=== PATIENT | female | born 1975 | race Caucasian/White ===

== ENCOUNTER 2017-08-02 12:26 | Emergency (ER) | payer MEDICARE, MEDICAID ==
[~2017-08-02] VITALS: Ht 165.1 cm; Wt 86.2 kg
[~2017-08-02 12:26] MED LIST: AMOXICOT500 MG PO; BROMFED DM COU118 ML PO; CLINDAMYCIN HC300 MG PO; FLONASE 50 MCG16 GM; HYDROCODONE1 TABLET PO; MEDROL 4MG. DOSE4 MG PO; MOTRIN 600MG.600 MG PO; NOMEDS; PHENERGAN 25MG.25 M1 PO; ZANTAC 150150 MG PO; ZITHROMAX Z PA250 MG PO
--- NOTE | 2017-08-02 12:58 | [facility]gent Treatment Center Report ---
History of Present Issue Date/Time Seen by Provider 08/02/17 8595 Visit Reason Pt arrived:Walked Presenting Problem:PT C/O SORE THROAT, LEFT EAR PAIN, NASAL DRAINAGE, AND CHEST CONGESTION. Location if Accident: Onset of symptoms date/time:/ or onset unknown for:MEDICAL HX UNKNOWN Have you (or family members/close friends) recently traveled outside the [place]? N If Yes, where/when: Have you had exposure to infectious disease within the past month? TB? Other? Specify: c/o "cold symptoms and my asthma". rhinorrhea, nasal congestion, PND, sore throat in morning x 2-3 days. Cough w/ mild SOA since yesterday. Hx of asthma and feels "cold symptoms" are "aggravating" it. No fever or wheezing. Albuterol inhaler has helped. Using 1-3 times a day. Requesting steroids "because that always helps my asthma when I am like this". Friend's daughter w/ similiar symptoms today. Source patient Exam Limitations no limitations ALLERGIES Coded Allergies: pregabalin (From [facility]) (Mild, 10/30/15) Home Medications Active Scripts Fluticasone Propionate (Flonase 50 Mcg Nasal [place]) 2 SPRAY NA DAILY #1 BOT Prov: 04/22/17 Reported Medications No Home Medications (NO HOME MEDICATIONS) History Medical History General CAD? Yes Angina: No [place]: No Hypertension? No Hyperlipidemia? No CHF? No DVT? No PE? No COPD? No Asthma? Yes Anemia? No GERD? No Gastric ulcers? No GI Bleed? No Hernia? No Thyroid Problems? No Hypothyroidism? No CVA? No Seizures? No Diabetes? No Renal Insuffiency? No UTI? Yes Stones? Yes BPH? No GB Disease: Yes Nephritic Syndrome? No Asplenia? No Hepatitis? No Sickle Cell Disease? No Arthritis? No Migraines? No Cataracts? No Glaucoma? No MRSA? No HIV? No TB? No Anxiety? No Depression? No Cancer? No More? No Immunization HX DT/Tetanus 1-4 Years Ago Flu NEVER Pneumonia NEVER Surgical Hx Previous Surgery?Y CHOLECYSTECTOMY ENDOMETRIOSIS SURG X2 Appendectomy HYSTERECTOMY Family History Family HX Diabetes Yes CAD Yes Hypertension Yes Hyperlipidemia No Cancer No TB No Social History Smoking Hx Smoker: Current Every Day Smoker Tobacco: No Alcohol Alcohol: No Review of Systems All Other Systems Reviewed and Negative Constitutional denies fever, malaise ("a little in general") Eyes denies drainage ENT see HPI. denies: ear discharge, throat swelling. Respiratory see HPI, cough (nonproductive) Cardiovascular denies chest pain Gastrointestinal denies no symptoms reported Skin denies rash Psychiatric/Neurological denies headache Physical Exam Vital Signs Vital Signs Date Time Temp Pulse Resp B/P Pulse O2 O2 Flow FiO2 Ox Delivery Rate 08/02 1313 98.7 68 20 137/94 100 08/02 1246 98.7 68 20 137/94 100 General Appearance normal appearance, no apparent distress Eye Exam - bilateral eye normal exam Ear, Nose, Throat nasal congestion (mild), clear PND, guerrero EACs and TMs normal Neck non-tender, supple Respiratory Status Yes: trachea midline, chest symmetrical, non productive cough (once in clinic). No: respiratory distress, use of accessory muscles, pain on inspiration, pain on expiration, productive cough. Lung Sounds anterior: lungs clear. posterior: lungs clear. bilateral: lungs clear. Cardiovascular regular rate/rhythm, no peripheral edema, no murmur Neurologic alert, oriented x 3 Mental status normal mood/affect Skin normal color, warm/dry Lymphatic no adenopathy Medical Decision Making LABS/Meds/Orders Pt receiving controlled substance in ED? No Departure Departure Time of Disposition 1308 Disposition DC Home or Self Care(routine) Clinical Impression Primary Impression: Upper respiratory virus Secondary Impressions: Acute asthma flare Qualifiers: Asthma severity: mild Asthma persistence: intermittent Qualified Code: J45.21 - Mild intermittent asthma with (acute) exacerbation Condition STABLE Referrals TANISHA GLORIA APRN (Family) IMMEDIATELY for new or worsening symptoms OR no noticeable improvement over the next 48-72 hours. 911 for difficulty breathing. Patient Instructions DI for Asthma -- Adult, DI for Viral Upper Respiratory Infection -- Adult Additional Instructions * No sign of bacterial infection. Likely viral. Virus can take 7-14 days to run their course * Monitor Temp. Follow up if fever develops * Encourage fluids, water, gatorade, powerade, pedialyte if infant/toddler/child * sleep elevated * humidifier/vaporizer Inhaler every 4-6 hours as needed like we discussed. If unsure how to use it, ask pharmacist to demonstrate how. Should help open airways and improve cough, wheezing, shortness of breath. * Start steroid today. Helps with inflammation therefore, cough and wheezing. Follow directions on package. Rvwd side effects. Pt reports she has taken them before, is requesting them today due to the improvement w/ her asthma when she takes them * Bromfed may cause drowsiness. Know how it effects you (or your child) before driving, caring for small children, or sending your child to school. No other antihistamines/allergy medications while taking bromfed. Discharge Counseling Counseled pt/family regarding diagnosis, medications/RX, home care, follow up needs Prescriptions Current Visit Scripts D-METHORPHAN HB/P-EPD HCL/BPM (Bromfed Dm Cough Syrup) 10 ML PO QIDP PRN cough #240 ML Methylprednisolone (Medrol Dose Fausto) 4 MG PO UD #1 FAUSTO TAKE DIRECTED ON PACKAGING at 1329
[2017-08-02] MEDS ORDERED: MEDROL 4MG. DOSE4 MG PO (13:12)
[2017-08-02] MEDS ORDERED: BROMFED DM COU118 ML PO (13:12)
[2017-08-02 13:13] VITALS: BP 137/94
--- OUTSIDE RECORDS SUMMARY | 2017-08-02 13:22 | External Medical Summary Rpt | CCD ---
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 PH 24 LD ve 23 20 20 0 AR 91 09 09 MA RI 6 CY CH AR #3 D 01 W 6 FL 00 09 10 00 60 14 CV 52 TH Ac UO 16 -2 -0 .0 S 81 OM ti CI 80 8- 8- 00 PH 27 PS ve NO 13 20 20 AR ON NI 46 09 09 MA DE 0 CY KR IS 0. #3 TI 05 01 N % 6 J SO MAURICE TI ON TR 00 09 09 00 45 30 CV 52 TH Ac IA 16 -1 -2 3. S 68 OM ti MC 80 7- 4- 60 PH 45 PS ve IN 00 20 20 0 AR ON OL 41 09 09 MA ON 6 CY KR E IS 0. #3 TI 1% 01 N 6 J CR EA M LI 68 07 09 01 30 30 CV 51 NA Ac SI 18 -0 -1 .0 S 86 ID ti NO 00 8- 0- 00 PH 19 U ve MN 51 20 20 AR LA IL 30 09 09 MA KS 5 3 CY HM I MG #3 M 01 TA 6 BL ET LI 68 07 08 01 30 30 CV 51 NA Ac SI 18 -0 -1 .0 S 86 ID ti NO 00 8- 3- 00 PH 19 U ve MN 51 20 20 AR LA IL 30 09 09 MA KS 5 3 CY HM I MG #3 M 01 TA 6 BL ET TR 00 07 07 00 20 10 CV 52 NA Ac AM 09 -2 -3 .0 S 03 ID ti AD 30 3- 0- 00 PH 05 U ve OL 05 20 20 AR LA 80 09 09 MA KS HC 5 CY HM L I 50 #3 M 01 MG 6 TA BL ET LI 63 07 07 00 30 30 CV 51 NA Ac DO 48 -0 -1 .0 S 86 ID ti DE 10 8- 6- 00 PH 22 U ve RM 68 20 20 AR LA 70 09 09 MA KS 5% 6 CY HM I PA #3 M TC 01 H 6 LI 68 07 07 00 30 30 CV 51 NA Ac SI 18 -0 -1 .0 S 86 ID ti NO 00 8- 6- 00 PH 19 U ve MN 51 20 20 AR LA IL 30 09 09 MA KS 5 3 CY HM I MG #3 M 01 TA 6 BL ET HY 00 05 06 00 60 30 CV [address] 16 -2 -0 .0 S 42 SS ti OC 80 8- 4- 00 PH 51 OW ve OR 08 20 20 AR TI 03 09 09 MA JE SO 1 CY AN NE IE #3 D 2. 01 5% 6 CR EA M ES 00 05 06 00 4. 28 CV 51 DA Ac TR 37 -2 -0 00 S 42 SS ti AD 83 8- 4- 0 PH 53 OW ve IO 35 20 20 AR L 29 09 09 MA JE TD 9 CY AN S IE 0. #3 D 1 01 MG 6 /D AY CI 13 05 06 00 15 30 CV 51 DA Ac TA 66 -2 -0 .0 S 43 SS ti LO 80 8- 4- 00 PH 59 OW ve MN 01 20 20 AR AM 10 09 09 MA JE 5 CY AN HB IE R #3 D 40 01 6 MG TA BL ET PA 60 01 03 00 30 30 CV 45 No Ac RO 50 -2 -2 .0 S 91 t ti XE 50 8- 6- 00 PH 24 Av ve TI 09 20 20 AR ai NE 70 08 08 MA la 1 CY bl HC e L #3 10 01 6 MG TA BL ET 00 01 03 00 30 2 CV 45 No Ac 40 -3 -2 .0 S 95 t ti 60 1- 6- 00 PH 92 Av ve 35 20 20 AR ai 80 08 08 MA la 5 CY bl e #3 01 6 LY 00 01 03 00 60 30 CV 45 No Ac RI 07 -2 -2 .0 S 91 t ti CA 11 8- 6- 00 PH 23 Av ve 01 20 20 AR ai 50 36 08 08 MA la 8 CY bl MG e #3 CA 01 PS 6 UL E 64 01 03 00 5. 10 CV 45 No Ac 01 -2 -2 79 S 91 t ti 10 8- 6- 9 PH 40 Av ve 00 20 20 AR ai 10 08 08 MA la 8 CY bl e #3 01 6 ES 00 01 03 00 30 30 CV 45 No Ac TR 55 -3 -2 .0 S 95 t ti AD 50 1- 6- 00 PH 91 Av ve IO 88 20 20 AR ai L 60 08 08 MA la 1 2 CY bl MG e #3 TA 01 BL 6 ET CL 00 01 03 00 30 30 CV 45 No Ac ON 09 -2 -2 .0 S 91 t ti AZ 30 8- 6- 00 PH 39 Av ve EP 83 20 20 AR ai AM 20 08 08 MA la 1 CY bl 0. e 5 #3 MG 01 6 TA BL ET TR 00 01 03 00 12 30 CV 45 No Ac AM 09 -2 -2 0. S 91 t ti AD 30 8- 6- 00 PH 20 Av ve OL 05 20 20 0 AR ai 80 08 08 MA la HC 5 CY bl L e 50 #3 01 MG 6 TA BL ET MN 00 01 03 00 30 7 CV 45 No Ac OM 60 -3 -2 .0 S 95 t ti ET 35 1- 6- 00 PH 90 Av ve MCDANIEL 43 20 20 AR ai ZI 72 08 08 MA la NE 1 CY bl e 12 #3 .5 01 6 MG TA BL ET 00 01 03 00 12 4 CV 45 No Ac 40 -2 -2 .0 S 87 t ti 60 4- 5- 00 PH 01 Av ve 35 20 20 AR ai 70 08 08 MA la 5 CY bl e #3 01 6 FL 00 01 03 00 60 15 CV 45 No Ac UO 16 -1 -2 .0 S 81 t ti CI 80 8- 5- 00 PH 41 Av ve NO 13 20 20 AR ai NI 46 08 08 MA la DE 0 CY bl e 0. #3 05 01 % 6 SO MAURICE TI ON PE 00 01 03 00 28 7 CV 45 No Ac NI 09 -1 -2 .0 S 81 t ti CI 31 9- 5- 00 PH 79 Av ve LL 17 20 20 AR ai IN 41 08 08 MA la 0 CY bl VK e #3 50 01 0 6 MG TA BL ET TR 59 01 03 00 2. 2 CV 45 No Ac IA 76 -2 -2 00 S 86 t ti ZO 23 3- 5- 0 PH 04 Av ve LA 71 20 20 AR ai M 70 08 08 MA la 0. 4 CY bl 12 e 5 #3 MG 01 6 TA BL ET FL 00 10 03 05 60 30 CV 44 No Ac UO 16 -2 -2 .0 S 77 t ti CI 80 3- 4- 00 PH 70 Av ve NO 13 20 20 AR ai NI 46 07 08 MA la DE 0 CY bl e 0. #3 05 01 % 6 SO MAURICE TI ON Procedures Procedure DOS Code Location Performer Comment RADEX 76277 BIA AMEZQUITA WRIST 1 [facility] MINIMUM 3 VIEWS RADEX 61409 BIA AMEZQUITA HAND [address] [place] [address] NEW ANASTACIO LASHELL SURG 1 [place] [facility] PSC GROSS&MISAEL ROSCOPIC EXAM BX SKIN 77748 THE NEW THE NEW SUBCUTANE 1 [facility] OUS&/MUCO CLINIC P CLINIC P US MEMBRANE 1 LESION SHVG SKIN 73873 [facility] LESION 1 1 [place] [facility] P TRUNK/ARM /LEG DIAM 0.6-1.0 CM ANTINUCLE 32219 BIA AMEZQUITA AR 1 [facility] ANTIBODIE [facility] S LAURENCE COLLECTIO 63464 BIA AMEZQUITA N VENOUS 1 [facility] BLOOD [facility] VENIPUNCT URE C-REACTIV 20935 BIA AMEZQUITA E PROTEIN 1 [facility] CYANOCOBA 73779 BIA AMEZQUITA JOHN PAUL 1 [facility] CREATINE 14274 [facility] AMEZQU[facility] KINASE 1 [place] [address] [facility] FOLIC 1 [facility] [place] [address] [facility] THYROID 1 [facility] NG HORMONE TSH 3D 26948 PREM AMARO RENDERING 1 [facility] MEM HOSP INC INC W/INTERP& POSTPROC DIFF WORK STATION RADEX 27676 PREM AMARO SPINE 1 [facility] LUMBOSACR INC [place] [address] [place] [address] [address] CERVICAL [address] [facility] ARCHIE SPINE W/O INC CONTRAST MATERIAL MRI 80605 NEURODIAG LUTZ TRA SPINAL 0 NOSTICPSC CANAL LUMBAR W/O CONTRAST MATERIAL RADEX 13642 [facility] HIPS 0 [place] [facility] 2 VIEWS PSC ANTEROPOS T PELVIS RADIOLOGI 44523 [facility] C EXAM 0 [place] [facility] C JOINTS PSC 3/MORE VIEWS RHEUMATOI 14775 [facility] D FACTOR 0 CLINIC CLINIC QUANTITAT LABORATO LABORATO BERNADETTE SEDIMENTA 34913 [facility] TION RATE 0 CLINIC CLINIC RBC LABORATO LABORATO AUTOMATED C-REACTIV 05782 [facility] E PROTEIN 0 CLINIC CLINIC LABORATO LABORATO RADEX 87417 [facility] SPINE 0 [place] ROS LUMBOSACR CLINIC AL 2/[address] [facility] N VENOUS [address] [place] [address] BLOOD VENIPUNCT URE CHLORIDE 94870 [facility] BLD [address] [place] [address] [facility] E BLOOD [address] [place] [address] [facility] IN TIME [address] [place] [address] [facility] GASES ANY [address] [place] [address] COMBINATI ON PH PCO2 PO2 CO2 HCO3 GLUCOSE [address] B[place]NADETTE BLOOD XCPT REAGENT STRIP NATRIURET [address]96 [facility] IC [address] [place] [address] [facility] SERUM [address] [place] [address] [place] [address] [facility] TROPONIN 0 HOSPITAL [facility] BLOOD 32363 [facility] COUNT [address] [place] [address] HOSPITAL COMPLETE AUTOMATED RADIOLOGI 60718 [facility] [place] BOSS 0 RADIOLOGY NALDO EXAMINATI O ON CHEST SINGLE VIEW FRONTAL ECG [address]24 [facility] ROUTINE [address] [place] [address] HOSPITAL ECG W/LEAST 12 LDS TRCG ONLY W/O I&R ECG 29216 [place], ROUTINE 0 [place] KILLIAN S ECG CLINIC W/LEAST PSC 12 LDS I&R ONLY POTASSIUM 07063 [facility] SERUM [address] [place] [address] HOSPITAL PLASMA/[place] [address] [facility] UREA [address] [place] [address] NITROGEN [facility] [id number] BIA AMEZQUITA OBSERVATI 0 [facility] HOSPITAL SERVICE PER HOUR BLOOD 21609 [facility] YUEON COUNT 0 [facility] AUTO&AUTO DIFRNTL WBC COLLECTIO 39673 BIA AMEZQUITA N VENOUS 0 [facility] VENIPUNCT URE LAPAROSCO 57959 [facility] TURNERON PIC 0 [facility] APPENDECT [facility] [place] ANESTHESI 64623 LEANNA DYE, Reynaldo 0 ANESTHESI PROSPER L INTRAPERI A GROUP TONEAL PSC LOWER ABD W/LAPS NOS LAPAROSCO 20732 [facility]AD PIC 0 , MARKOS , MARKOS APPENDECT [place] LEVEL III 05952 PATHOLOGY PATHOLOGY SURG 0 & & PATHOLOGY CYTOLOGY CYTOLOGY LAB LAB GROSS&[place] [address] YUEON MARCELINAURBON ABDOMEN 0 [facility] W/O HOSPITAL HOSPITAL CONTRAST MATERIAL URNLS DIP 94679 [place] BOUR[place] 0 [facility] STICK/TAB HOSPITAL HOSPITAL LET REAGENT AUTO MICROSCOP Y CT PELVIS 19541 [facility] LEANNA GARRETT, W/O 0 [place] [address] YUEON MARCELINAURBON INFUSION 0 [facility] EACH ADDITIONA L HOUR COMPREHEN 54009 [facility] TURNERON SIVE 0 [facility] [address] BIA AMEZQUITA AMYLASE 0 [facility] [place] [address] BIA AMEZQUITA LIPASE 0 [facility] THERAPEUT 64584 BIA AMEZQUITA IC 0 [facility] INJECTION [facility] IV PUSH EACH NEW DRUG THER 22700 BIA AMEZQUITA PROPH/DX 0 [facility] SEQL IV PUSH SBST/DRUG FAC BLOOD 20868 BIA AMEZQUITA COUNT 0 [facility] AUTOMATED THER 14459 BIA AMEZQUITA PROPH/DX 0 [facility] HOSPITAL PUSH SINGLE/1S T SBST/DRUG BLOOD 95618 BIA AMEZQUITA COUNT 0 [facility] MCRSCP W/MNL DIFRNTL WBC COUNT EXC B9 44355 [place], LESION 9 MICHEL MCKEONT MRGN XCP CLINIC H SK TG PSC T/A/L 1.1-2.0 CM EXC B9 95761 [place], LESION 9 MICHEL MC[facility]ONT MRGN XCP CLINIC H SK TG PSC T/A/L 0.5 CM/< REPAIR 72183 [place], INTERMEDI 9 [facility] H S/A/T/E PSC 2.6-7[place] [address] [facility] SURG 9 CLINIC CLINIC PATHOLOGY LABORATOR LABORATOR Y Y GROSS&[place] [address] [facility] SURG 9 CLINIC CLINIC PATHOLOGY LABORATOR LABORATOR Y Y GROSS&MISAEL ROSCOPIC EXAM COLLECTIO 22697 [facility] N VENOUS 9 CLINIC CLINIC BLOOD LABORATOR LABORATOR VENIPUNCT Y Y URE INJECTION 68693 [facility], 9 MICHEL JOSEFINA INTRALESI CLINIC J ONAL UP PSC TO & INCLUD 7 LESIONS SHAVING 94032 [facility], SKIN 9 MICHEL JOSEFINA LESION 1 CLINIC J TRUNK/ARM PSC /LEG DIAM 0.5CM/< SHVG SKIN 96292 [facility], LESION 1 9 MICHEL JOSEFINA CLINIC J TRUNK/ARM PSC /LEG DIAM 0.6-1.0 CM ACUTE 14938 [facility] HEPATITIS 9 CLINIC CLINIC PANEL LABORATOR LABORATOR Y Y JHOANA 00975 NANCY HENDERSON, POST-VOID 9 [place] KARLOS Nuñez [facility] CLINIC RESIDUAL PSC URINE&/[place] [address] [facility], ABDOMEN 9 [place] JOE W W/O & CLINIC W/CONTRAS PSC T MATERIAL CT PELVIS 89907 [facility], W/O & 9 [place] JOE W W/CONTRAS CLINIC T PSC MATERIAL CYSTOURET 70981 NANCY HENDERSON, HROSCOPY 9 [place] KARLOS Nuñez [facility] PSC MRI 08976 NEURODIAG LUTZ, PELVIS 9 NOSTICPSC KOSTAS B W/CONTRAS T MATERIAL MRI 74120 NEURODIAG LUTZ, ABDOMEN 9 NOSTICPSC [place] B W/CONTRAS T MATERIAL MRI 48418 NEURODIAG LUTZ, SPINAL 9 NOSTICPSC KOSTAS B CANAL LUMBAR W/O & W/CONTR MATRL ECG 64823 [place], ROUTINE 9 [place] WAI M ECG CLINIC W/LEAST PSC 12 LDS W/I&[place] [address] [facility] FREE 9 CLINIC CLINIC THYROXINE LABORATOR LABORATOR Y Y LIPID 05796 [facility] PANEL 9 CLINIC CLINIC LABORATOR LABORATOR Y Y GENERAL 83436 [facility] 9 CLINIC CLINIC PANEL LABORATOR LABORATOR Y Y SEDIMENTA 37178 [facility] TION RATE 9 CLINIC CLINIC RBC LABORATOR LABORATOR AUTOMATED Y Y URNLS DIP 85026 [facility] 9 CLINIC CLINIC STICK/TAB LABORATOR LABORATOR LET Y [place] [address] [facility] TRIIODOTH 9 CLINIC CLINIC YRONINE LABORATOR LABORATOR T3 FREE Y Y COLLECTIO 11605 [facility] N VENOUS 9 CLINIC CLINIC BLOOD LABORATOR LABORATOR VENIPUNCT Y Y URE MRI 57278 NEURODIAG LUTZ, ABDOMEN 9 NOSTICPSC [place] B W/O CONTRAST MATERIAL MRI 28380 NEURODIAG LUTZ, PELVIS 9 NOSTICPSC [place]OST[place] B W/O CONTRAST MATERIAL MRI 39639 NEURODIAG LUTZ, SPINAL 9 NOSTICPSC KOST[place] B CANAL CERVICAL W/O CONTRAST MATRL MRI BRAIN 19226 NEURODIAG LUTZ, BRAIN 9 NOSTICPSC KOSTAS B STEM W/[place] [address] [facility] [place] HER[place], HEAD/BRAI 9 RADIOLOGY MARRY D N W/O CONTRAST MATERIAL MRI 70559 [facility] [place] HERB, SPINAL 9 RADIOLOGY MARYR D CANAL CERVICAL W/[place] [address] [facility] CERVICAL 9 [facility] SPINE W/O [facility] CONTRAST MATERIAL THERAPEUT 84115 [facility] IC 9 [facility] TIC/DX INJECTION SUBQ/IM AMB A0427 [facility] SERVICE 9 [facility] EMERGENCY EMS EMS TRANSPORT LEVEL 1 GROUND A0425 [facility] STATUTE EMS EMS MILE DOPPLER 38889 MICHEL JORDAN ECHOCARD 8 HEART [place] PULSE SPEC WAVE W/SPECTRA L DISPLAY ECHO 07878 MICHEL JORDAN TRANSTHOR 8 HEART [place] AC R-T 2D SPEC W/WO M-MODE REC COMP DOP 87783 MICHEL JORDAN ECHOCARD 8 HEART C[place] COLOR SPEC FLOW VELOCITY MAPPING ECG 47015 [facility] [place], [place] 8 PHYSICIAN BUSHRA E ECG W/LEAST CORPORATI 12 LDS ON II I&R ONLY OTH 6561 TOBY LUIS REMOVAL 8 [facility] BOTH MEDICAL MEDICAL OVARIES&T CENTER CENTER UBES@SAME OP EPIS OTHER & 6849 TOBY LUIS UNSPECIFI 8 [facility] ED TOTAL MEDICAL MEDICAL ABDOMINAL CENTER CENTER HYSTERECT [place] TOTAL 60998 CHAMBERLA CHAMBERLA ABDOMINAL 8 IN, IN, CIPRIANO A CIPRIANO A HYSTERECT W/WO RMVL TUBE OVARY ANESTHESI 26231 DIAMANTEWEA Reynaldo IVY 8 [facility] INTRAPERI ANESTHESI E TONEAL A PSC [place]OWER [place]BD W/[place] [address] TOBY LUIS TRANSVAGI 8 [facility] CENTER IADNA 74325 PATHOLOGY PATHOLOGY NEISSERIA 8 & & CYTOLOGY CYTOLOGY GONORRHOE LAB LAB AE AMPLIFIED PROBE TQ IADNA NOS 65290 MEDICAL MEDICAL 8 DIAGNOSTI DIAGNOSTI AMPLIFIED [facility] PROBE TQ EACH ORGANISM IADNA 45691 MEDICAL MEDICAL CY 8 DIAGNOSTI DIAGNOSTI SPECIES [facility] AMPLIFIED PROBE TQ IADNA 86678 MEDICAL MEDICAL GARDNEREL 8 DIAGNOSTI DIAGNOSTI LA C LAB LLC C LAB LLC VAGINALIS AMPLIFIED PROBE TQ IADNA 90566 PATHOLOGY PATHOLOGY PAPILLOMA 8 & & VIRUS CYTOLOGY CYTOLOGY HUMAN LAB LAB AMPLIFIED PROBE TQ CYTP 82942 PATHOLOGY PATHOLOGY CERVICAL/ 8 & & VAGINAL CYTOLOGY CYTOLOGY REQ LAB LAB INTERP PHYSICIAN CYTP C/V 93016 PATHOLOGY PATHOLOGY AUTO THIN 8 & & LYR CYTOLOGY CYTOLOGY PREPJ SCR LAB LAB MNL RESCR PHYS IADNA 62143 PATHOLOGY PATHOLOGY CHLAMYDIA 8 & & CYTOLOGY CYTOLOGY TRACHOMAT LAB LAB IS AMPLIFIED PROBE TQ OPHTH 57898 JUSTA MARR, MEDICAL 8 CRESCENCIO A CRESCENCIO A XM&EVAL COMPRE NEW PT 1/> VST FUNDUS 63264 JUSTA MARR, PHOTOGRAP 8 CRESCENCIO A CRESCENCIO A HY W/INTERPR ETATION & REPORT APPL 78429 [place]ILL[place], MODALITY 8 GIANFRANCO Can 1/> AREAS TRACTION MECHANICA L CHIROPRAC 03920 [place], TIC 8 GIANFRANCO Can MANIPULAT BERNADETTE TX SPINAL 1-2 REGIONS THERAPEUT 98703 [place], ACTVITY 8 GIANFRANCO Can DIRECT PT CONTACT EACH 15 MIN APPLICATI 59452 [place], ON 8 GIANFRANCO Can MODALITY 1/> AREAS HOT/COLD PACKS Encounters Encounter Start End Date Code Location Performer Type Date [facility] [address] T EMERGENCY [address] T VISIT MODERATE SEVERITY OFFICE 22611 [facility] [place] [facility] 1 1 [facility] T VISIT CLINIC P LABORATO 25 MINUTES [facility] OFFICE 53368 [facility] OUTPATIEN 1 1 NEUROLOGY SARAH T VISIT CENTER 40 GELY MINUTES OFFICE 22968 [facility] 1 1 JOANN DEL ROSARIO T VISIT M.D.P.S.C 15 . MINUTES OFFICE 94631 NILA DOTSON OUTPATIEN 1 1 MERISSA MERISSA T VISIT 15 MINUTES EMERGENCY 37718 JOANIE GARZA DEPT 1 1 EMERGENCY III CORY VISIT SERVICES HIGH SEVERITY& THREAT [facility] PREM - 1 1 [facility] OUTPATIEN INC T EMERGENCY 65613 PREM 1 1 [facility] DEPARTMEN INC T VISIT LOW/MODER SEVERITY OFFICE 49786 NEW ABB[facility] STEPHIE OUTPATIEN 0 0 [place] T VISIT CLINIC 15 PSC MINUTES OFFICE 45443 NILA DOTSON OUTPATIEN 0 0 MERISSA MERISSA T VISIT 40 MINUTES OFFICE 94194 NEW HAO STEPHIE OUTPATIEN 0 0 [place] T NEW 45 CLINIC MINUTES PSC OFFICE 81334 NILA DOTSON OUTPATIEN 0 0 MERISSA MERISSA T VISIT 15 MINUTES OFFICE 34078 AZALEA, AZALEA, CONSULTAT 0 0 ELENI ELENI ION NEW/ESTAB PATIENT 60 MIN EMERGENCY 35198 [facility] DEPT 0 0 HOSPITAL VISIT HIGH SEVERITY& THREAT [facility] - 0 0 HOSPITAL OUTPATIEN T EMERGENCY 36180 [facility] 0 [facility] T VISIT LIMITED/M INOR PROB EMERGENCY 35615 [facility] 0 0 JIAN KEE [facility] EMERGENCY T VISIT PHYS INC LOW/MODER SEVERITY [facility] [place] - 0 0 [facility] T OFFICE 30695 NILA DOTSON OUTPATIEN 0 0 [place] Workman T VISIT 15 MINUTES EMERGENCY 04250 [facility], DEPT 0 0 JIAN HODGES DO, VISIT EMERGENCY ALDAIR O HIGH PHYS INC SEVERITY& THREAT FUN EMERGENCY 40275 [place] DEPT 0 0 COMM[facility]ITY VISIT HOSPITAL HIGH SEVERITY& THREAT FUNJ [facility]OS[facility] [place] - 0 0 [facility] T OFFICE 44076 NILA ODTSON OUTPATIEN 9 9 [place] Workman T NEW 30 MINUTES OFFICE 65783 [facility] CONSULTAT 9 9 [place] JOSEFINA ION CLINIC J NEW/ESTAB PSC PATIENT 30 MIN OFFICE 18402 NANCY SUMNER CONSULTAT 9 9 [place] UMER ION CLINIC NEW/ESTAB PSC PATIENT 60 MIN OFFICE 73298 JESSICA DOMÍNGUEZ 9 9 MICHEL EVERETT C T VISIT CLINIC 15 PSC MINUTES OFFICE 10870 NEW BEATRIZ CONSULTAT 9 9 MICHEL KARLOS C ION CLINIC NEW/ESTAB PSC PATIENT 40 MIN OFFICE 49108 RAJ KELLERPATIEN 9 9 MICHEL NGUYENMI M T VISIT CLINIC 25 PSC MINUTES OFFICE 47383 [place] OUTPATIEN 9 9 MICHEL NGUYENMI M T VISIT CLINIC 25 PSC MINUTES OFFICE 66442 NANCY VIEYRA OUTPATIEN 9 9 MICHEL NGUYENMI M T NEW 45 CLINIC MINUTES PSC EMERGENCY 37730 [facility] 9 9 [facility] T VISIT MODERATE SEVERITY [facility] [place] - 9 9 [facility] T OFFICE 40734 WAI BOND 8 8 HEART CIPRIANO EDWARDS NEW/ESTAB PATIENT 60 MIN HOSPITAL TOBY - [place] 8 [facility] TOBY - 8 8 [facility] 24264 [facility] 8 8 IN, IN, T NEW 45 CIPRIANO COTA A MINUTES OFFICE 56990 PHYSICIAN WAI ROBERTS 8 8 Rosalio JAMA SERVICES NEW/ESTAB PSC PATIENT 40 MIN
--- OUTSIDE RECORDS SUMMARY | 2017-08-02 13:22 | External Medical Summary Rpt | CCD ---
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 TOBY - 8 8 [facility] 64167 [facility] 8 8 [place], [place], T NEW 45 CIPRIANO COTA A MINUTES OFFICE 25724 PHYSICIAN WAI ROBERTS 8 8 Rosalio JAMA SERVICES NEW/ESTAB PSC PATIENT 40 MIN
--- OUTSIDE RECORDS SUMMARY | 2017-08-02 13:29 | External Medical Summary Rpt | CCD ---
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 OFFICE 05184 [facility] STEPHIE OUTPATIEN 0 0 [place] [facility] 15 PSC MINUTES OFFICE 55839 NILA DOTSON OUTPATIEN 0 0 MERISSA MERISSA T VISIT 40 MINUTES OFFICE 21695 NEW ABB[facility] STEPHIE OUTPATIEN 0 0 [place] T NEW 45 CLINIC MINUTES PSC OFFICE 37145 NILA DOTSON OUTPATIEN 0 0 MERISSA MERISSA T VISIT 15 MINUTES OFFICE 97336 AZALEA, AZALEA, CONSULTAT 0 0 ELENI ELENI ION NEW/ESTAB PATIENT 60 MIN EMERGENCY 08809 [facility] DEPT 0 0 LAUREN HOOPER VISIT EMERGENCY HIGH PHYS INC SEVERITY& [facility] - 0 0 HOSPITAL OUTPATIEN T EMERGENCY 83932 [place] 0 0 [facility] T VISIT LIMITED/M INOR PROB EMERGENCY 35298 [facility], [address] [facility] EMERGENCY T VISIT PHYS INC LOW/MODER SEVERITY [facility] [place] - 0 0 [facility] T OFFICE 70622 LILLINILA FERNANDEZ, OUTPATIEN 0 0 CIPRIANO Workman T VISIT 15 MINUTES EMERGENCY 85646 [facility], DEPT 0 0 JIAN HODGES DO, VISIT EMERGENCY ALDAIR O HIGH PHYS INC SEVERITY& THREAT [facility] [place] - 0 0 [facility] T EMERGENCY 12126 [place] DEPT 0 0 [facility] VISIT HOSPITAL HIGH SEVERITY& THREAT [facility] OFFICE 70157 NILA DOTSON, OUTPATIEN 9 9 CIPRIANO Workman T NEW 30 MINUTES OFFICE 14593 [facility] 9 9 ICARD JOSEFINA ION CLINIC J NEW/ESTAB PSC PATIENT 30 MIN OFFICE 66058 [facility] 9 9 MICHEL UMER ION CLINIC NEW/ESTAB PSC PATIENT 60 MIN OFFICE 96281 JESSICA DOMÍNGUEZ 9 9 MICHEL EVERETT C T VISIT CLINIC 15 PSC MINUTES OFFICE 13595 NEW BEATRIZ CONSULTAT 9 9 MICHEL MONTEIROW C ION CLINIC NEW/ESTAB PSC PATIENT 40 MIN OFFICE 38616 NEW JARRELL OUTPATIEN 9 9 MICHEL NGUYENMI M T VISIT CLINIC 25 PSC MINUTES OFFICE 57519 [facility] OUTPATIEN 9 9 MICHEL HUERTASHMI M T VISIT CLINIC 25 PSC MINUTES OFFICE 30429 [facility]AR[facility] OUTPATIEN 9 9 [place] WAI M T NEW 45 CLINIC MINUTES [facility] [place] - 9 9 [facility] T EMERGENCY 77792 YUEON 9 9 [facility] T VISIT MODERATE SEVERITY OFFICE 96692 WAI BOND 8 8 HEART CIPRIANO EDWARDS NEW/ESTAB PATIENT 60 MIN [facility] TOBY - 8 8 [facility] TOBY - 8 8 [facility] OFFICE 55782 [facility] 8 8 IN, IN, T NEW 45 CIPRIANO COTA A MINUTES OFFICE 81351 PHYSICIAN WAI ROBERTS 8 8 S PATRICIA JAMA SERVICES NEW/ESTAB PSC PATIENT 40 MIN
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
--- OUTSIDE RECORDS SUMMARY | 2017-08-02 13:31 | External Medical Summary Rpt ---
Author Author [employer], [employer] Organization [employer] Address Unknown Phone Unavailable
--- OUTSIDE RECORDS SUMMARY | 2017-08-02 13:31 | External Medical Summary Rpt | CCD ---
Demographics Preferred Language [place] Arabian Marital Status Unknown Samaritan Affiliation Unknown Race Unknown Ethnic Group Unknown Author Author , [employer] Address Unknown Phone Immunization No patient found.
--- OUTSIDE RECORDS SUMMARY | 2017-08-02 13:31 | External Medical Summary Rpt | CCD ---
Demographics Preferred Language Cuban Marital Status Unknown Oriental Orthodox Affiliation Unknown Race Unknown Ethnic Group Unknown Author Author , [employer] ONE[employer] Address Unknown Phone Immunization No patient found.
== END 2017-08-02 13:17 | disposition home or self-care (01) ==
LOC: UTC 12:26
DX: J06.9 Acute upper respiratory infection, unspecified (principal); J45.21 Mild intermittent asthma with (acute) exacerbation; F17.210 Nicotine dependence, cigarettes, uncomplicated; Z79.899 Other long term (current) drug therapy